=== PATIENT | male | born 1985 | race Two or more races ===

== ENCOUNTER 2021-08-22 17:08 | Emergency (ER) | payer OTHER ==
[~2021-08-22] VITALS: Ht 190.5 cm; Wt 97.5 kg
== END 2021-08-22 21:43 | disposition home or self-care (01) ==
LOC: ER 17:08
DX: R19.7 Diarrhea, unspecified (principal); R11.10 Vomiting, unspecified; Z88.8 Allergy status to other drugs, medicaments and biological substances

== ENCOUNTER 2021-11-11 15:58 | Outpatient (CLI) | payer OTHER | END 2021-11-11 15:59 | disposition home or self-care (01) | LOC: LAB 15:58 | PROVIDERS: ATTEND Surgery | DX: Z20.828 Contact with and (suspected) exposure to other viral communicable diseases (principal) ==

== ENCOUNTER 2023-02-11 13:16 | Outpatient (CLI) | payer OTHER | END 2023-02-11 13:20 | disposition home or self-care (01) | LOC: RAD 13:16 | PROVIDERS: ATTEND Internal Medicine | DX: J20.9 Acute bronchitis, unspecified (principal); R05.1 Acute cough ==